=== PATIENT | female | born 1955 | race Caucasian/White ===

== ENCOUNTER → 2024-05-19 08:18 | Outpatient (REF) | payer OTHER, SELFPAY | LOC: HWWDC 08:18 | PROVIDERS: ATTENDING PHYSICIAN Student in an Organized Health Care Education/Training Program | DX: Z12.31 Encounter for screening mammogram for malignant neoplasm of breast (principal) | CPT/HCPCS: 77063; 77067 ==

== ENCOUNTER 2025-03-21 07:33 | Emergency (ER) | payer OTHER, SELFPAY ==
[2025-03-21 07:39] VITALS: BP 122/80
[2025-03-21 07:47] VITALS: BMI 23.8
--- NOTE | 2025-03-21 08:27 | ED.GENMED ---
ED Provider Triage
<Bhargav Little MD, Resident - Last Filed: 03/21/25 08:40>
-
Patient seen by provider in Triage?: Seen in Triage
History of Present Illness
<Bhargav Little MD, Resident - Last Filed: 03/21/25 08:40>
General
Chief Complaint: Skin Problem
Source: patient
Exam Limitations: none
Time Seen by Provider: 03/21/25 07:46
History of Present Illness
History of Present Illness:
69 y/o female presents with painful, swollen finger since the past 1 week. Describes the pain as moderate, throbbing in intensity, located at the base of her nail bed, and non radiating. Got antibiotics 5 days ago from PCP ( she cant remember name),
however they did not alleviate symptoms. since PCP visit, the pain got worse, and finger progressively more swollen. She states that she does bite her nails. No fever, chills. nausea, vomiting. No previous similar episodes. No medical history like
diabetes or immunosupressive conditions.
If applicable-neuro sx onset
Onset of symptoms known: No
Time pt last seen normal is known: No
Past History
<Bhargav Little MD, Resident - Last Filed: 03/21/25 08:40>
Past History
ED Past Medical History: None and Other (cervicalgia)
Social History
Tobacco: Non-smoker
Alcohol: Occasional
Drug: None
Employment: Employed
Review of Systems
<Bhargav Little MD, Resident - Last Filed: 03/21/25 08:40>
Review of Systems
Allergies reviewed?: Yes
All Other Systems: ROS reviewed and negative except as documented in HPI and ROS
Skin: Denies itching or rash
Phy Exam
<Bhargav Little MD, Resident - Last Filed: 03/21/25 08:40>
General Physical Exam
General Presentation: well appearing and no apparent distress
General Skin: warm and dry
General Mental: alert
Cardiovascular Exam
Cardiovascular Exam: regular rate/rhythm
Pulmonary Exam
Pulmonary Exam: lungs clear and no respiratory distress
Skin Exam
Skin Exam: normal color, warm/dry and other (There is tenderness, fluctuance, and edema surrounding the second digit nail bed. )
Course
<Bhargav Little MD, Resident - Last Filed: 03/21/25 08:40>
Orders/Labs/Results
Orders:
Orders
03/21/25 08:23
Clindamycin HCl [Cleocin] 300 mg PO NOW STA
Vital Signs
Initial and Last Documented VS:
Initial Vital Signs
Temp Pulse Resp BP Pulse Ox
36.7 C 63 18 122/80 98
03/21/25 07:39 03/21/25 07:39 03/21/25 07:39 03/21/25 07:39 03/21/25 07:39
Last Documented Vital Signs
Temp Pulse Resp BP Pulse Ox
36.7 C 63 18 122/80 98
03/21/25 07:39 03/21/25 07:39 03/21/25 07:39 03/21/25 07:39 03/21/25 08:30
<Sushil Prince MD - Last Filed: 03/21/25 08:55>
Orders/Labs/Results
Orders:
Orders
03/21/25 08:23
Clindamycin HCl [Cleocin] 300 mg PO NOW STA
Vital Signs
Initial and Last Documented VS:
Initial Vital Signs
Temp Pulse Resp BP Pulse Ox
36.7 C 63 18 122/80 98
03/21/25 07:39 03/21/25 07:39 03/21/25 07:39 03/21/25 07:39 03/21/25 07:39
Last Documented Vital Signs
Temp Pulse Resp BP Pulse Ox
36.7 C 63 18 122/80 98
03/21/25 07:39 03/21/25 07:39 03/21/25 07:39 03/21/25 07:39 03/21/25 08:30
<Bhargav Little MD, Resident - Last Filed: 03/21/25 08:40>
MDM/Problems Addressed
Differential Diagnosis Includes:
paronychia, cellulitis, felon, abscess
MDM/Problems Addressed:
69 y/o female with swollen, erythematous, tenderness of surrounding are of second digit on left hand. Vitals stable, afebrile.
- Since there is pus, and due to size of infection, drained pus on the second digit of the left hand near nail bed, applied topical antibiotic cream, wrapped finger
- Will discharge home with clindamycin to take as instructed, and also instructed patient to us daily warm compresses, avoid nail biting
<Bhargav Little MD, Resident - Last Filed: 03/21/25 08:40>
*Pulse Oximetry
SaO2: 98
Oxygen Mode of Delivery: Room air
Patient hypoxic: no
*Critical Care Note
Total Time (30-74mins, 75-104mins- exclusive of procedures): Not Applicable
ED Attending Note
<Bhargav Little MD, Resident - Last Filed: 03/21/25 08:40>
-
Portions of this chart may have been created with voice recognition software.� Occasional wrong word or��sound alike� substitutions may have occurred due to the inherent limitations of voice recognition software.
<Sushil Prince MD - Last Filed: 03/21/25 08:55>
ED Attending Note
Patient seen and examined by attending physician: Yes
I performed a history and physical exam of patient and discussed management with resident, I reviewed resident's note and agree with documented findings and plan of care.: Yes
ED Attending Note:
I have seen and evaluated the patient with a [id number] encounter. I have spoken to the resident and involved in the medical history, the physical exam, medical decision making.
Evaluation and management service: agree unless noted differently below.
Results interpretation: agree unless noted differently below.
Focused HPI: 69-year-old female presents to the ER for evaluation of left index finger pain and swelling. Patient says she noticed some swelling around the nailbed and redness and was initially seen by primary doctor who started her on antibiotics
(she believes it may be doxycycline) which she has been taking for 4 days. Despite this intervention she has had worsening swelling and redness on the dorsum of the index finger which prompted ER visit. No other acute complaints noted. No trauma
noted.
Physical exam: Awake and alert not in distress. Vital signs normal. Patient has a large paronychia on the left index finger with large amount of fluctuance of the nailbed. No tenderness of the pulp of the finger to suggest felon.
Medical Decision Makin-year-old female presents with large paronychia not improving after few days of antibiotics. Incision and drainage performed at bedside with large amount of purulent drainage expressed. Clean dressing applied. Will
switch to clindamycin as patient reports that she bites her nails this will cover for oral ruel. Advised patient to monitor area closely and continue doing warm soaks multiple times daily over the next few days. Spoke in detail about return
precautions. All questions answered.
Discharge Plan
Departure
Patient Disposition: Home (Routine Discharge)
Date of Disposition: 03/21/25
Time of Disposition: 08:21
Patient with high blood pressure during this ER visit?: No
Discharge Problem:
Paronychia
Instructions: Paronychia - ED (DC)
Prescriptions:
New
clindamycin HCl [Cleocin HCl] 300 mg capsule
300 mg PO Q6H 7 Days Qty: 28 0RF
Activity Restrictions/Additional Instructions:
Thank you for visiting the Emergency Department at [facility].
1. Please schedule a follow up appointment as directed. Call first thing tomorrow morning to make an appointment.
2. If indicated, please take your medications as instructed and indicated on discharge paperwork.
3. If any of your symptoms do not improve, or persist, or become more severe within 6-12 hours, please return to the emergency department for further care.
4. Please return to the emergency department if you develop a headache, neck pain/stiffness, fever greater than 100.4F, chest pain, shortness of breath, persistent nausea, vomiting, slurred speech, difficulty walking, numbness/tingling, weakness,
signs of infection or any other symptoms that are worrisome to you.
Please call [phone] if you have any questions.
Interventions
Interventions:
*Risk Screen - Suicide Last Done: 03/21/25 07:39
*General Assessment Last Done: 03/21/25 07:47
*Neglect/Abuse Screening Last Done: 03/21/25 07:39
*ED- Fall Risk Assessment Last Done: 03/21/25 07:47
*ED COVID-19 Vaccine History Last Done: 03/21/25 07:47
*Nursing Disposition Last Done: 03/21/25 08:51
ED-Skin Assessment Last Done: 03/21/25 08:51
Discharge Date and Time
Print Language: AMHARIC
[2025-03-21] MEDS: CLEOCIN 300 MG PO (08:46)
== END 2025-03-21 08:53 | disposition home or self-care (01) ==
LOC: EMR 07:33
PROVIDERS: EMERGENCY PHYSICIAN Emergency Medicine; FAMILY PHYSICIAN Student in an Organized Health Care Education/Training Program
DX: L03.012 Cellulitis of left finger (principal)
CPT/HCPCS: 99283; 10060

== ENCOUNTER 2025-03-21 20:21 | Emergency (ER) | payer OTHER, SELFPAY ==
[2025-03-21 20:23] VITALS: BP 94/67
--- NOTE | 2025-03-21 21:20 | ED.GENMED ---
History of Present Illness
General
Chief Complaint: Skin Problem
Source: patient
Time Seen by Provider: 03/21/25 21:05
History of Present Illness
History of Present Illness:
This patient is a 69-year-old female presents emergency department after be seen earlier today for paronychia of the left index finger. She soaked it once and has been compliant with the antibiotic clindamycin that was prescribed. However, she
noted reaccumulation of the swelling and purulence although less then she noted earlier today. She denies fever, chills, streaking, sweats, nausea, vomiting, chest pain, shortness of breath, numbness, or other complaints. Patient is not a diabetic.
Past History
Past History
ED Past Medical History: Other (cervicalgia)
Social History
Tobacco: Non-smoker
Alcohol: Occasional
Drug: None
Personal:
Living: with family
Employment: Employed
Phy Exam
Physical Exam
Physical Exam:
GENERAL: Alert , in no apparent distress
EYE: pupils equal and reactive
NECK: Supple, no significant adenopathy.
ENT: o/p clr, mmm.
CARDIAC: Regular rate and rhythm .
LUNGS: Clear breath sounds bilaterally, no acute respiratory distress, no wheezes/rales/rhonchi
ABDOMEN: Soft, without focal tenderness, no r/g, no cvat
NEUROLOGICAL: Alert and oriented, no focal neuro deficits
SKIN: Warm and dry, skin intact. Left index finger with mod sized paronychia and assoc erythema, no streaking ,no flexor tendon ttp/sausage digit/limitation of rom, or other s/o tenosynovitis. No nail abnl.
MUSCULOSKELETAL: mild edema of L distal index finger, well perfused.
PSYCH: Normal and appropriate interaction.
Course
Vital Signs
Initial and Last Documented VS:
Initial Vital Signs
Temp Pulse Resp BP Pulse Ox
97.9 F 68 20 94/67 98
03/21/25 20:23 03/21/25 20:23 03/21/25 20:23 03/21/25 20:23 03/21/25 20:23
Last Documented Vital Signs
Temp Pulse Resp BP Pulse Ox
97.9 F 68 20 94/67 98
03/21/25 20:23 03/21/25 20:23 03/21/25 20:23 03/21/25 20:23 03/21/25 21:26
Procedures
Digital Block
Location of injection for digital block: base of digit
Indiction for Digital Block: other
Type of anesthesia: 1% Lidocaine w/o EPI
Complications: none- good anesthesia
*Pulse Oximetry
SaO2: 98
Oxygen Mode of Delivery: Room air
Patient hypoxic: no
*Critical Care Note
Total Time (30-74mins, 75-104mins- exclusive of procedures): Not Applicable
Update Note
Update Note:
Patient presents to the Emergency Department with ___recurrent swelling and pain of left index finger
Number and Complexity of Problems Addressed at the Encounter
� Chronic conditions affecting care:
� Acute Exacerbation and/or Progression of Chronic Illness:
� Differential Diagnosis includes: But not limited to persistent paronychia, herpetic dwayne, flexor tenosynovitis, cellulitis, etc. etc.
Amount and/or Complexity of Data to be Reviewed and Analyzed
� I performed an independent evaluation of and my interpretation is:
EKG:
CT:
Xrays:
Laboratory Studies:
Other:
� Review of other/old records reveals:
� Clinical information was obtained by an independent historian:
� Prescriptions/Medications Considered but not given:
� Further testing considered but not performed:
Risk of Complications and/or Morbidity or Mortality of Patient Management
� Social determinants of health affecting care:
� Discussion with other providers (PCP, Hospitalists, Consultants, etc):
� Escalation of care including admission/observation vs risk of discharge considered: Exam does not show signs to suggest lymphangitis, flexor tenosynovitis, and does not look characteristic for herpetic dwayne. Suspect
reaccumulation of pus with paronychia. Encouraged patient to be very consistent with warm soaks and antibiotics, recommend soaks at least 4 times a day, close inspection of area, aware of importance of follow-up and again reasons to return the
emergency department.
Digital block performed, betadine applied to area, incision made, area irrigated, pus expressed, RN to dress. Pt encouraged to take photo of finger at least once a dya for f/u.
ED Attending Note
-
Portions of this chart may have been created with voice recognition software.� Occasional wrong word or��sound alike� substitutions may have occurred due to the inherent limitations of voice recognition software.
Discharge Plan
Departure
Patient Disposition: Home (Routine Discharge)
Date of Disposition: 03/21/25
Time of Disposition: 21:31
Patient with high blood pressure during this ER visit?: No
Condition: Good
Discharge Problem:
Paronychia
Instructions: Paronychia - ED (DC)
Prescriptions:
No Action
clindamycin HCl [Cleocin HCl] 300 mg capsule
300 mg PO Q6H 7 Days Qty: 28 0RF
Referrals:
Natalie Astorga MD, Resident [Family Provider, General] - Follow up in 2-3 days
Activity Restrictions/Additional Instructions:
PLEASE SEE YOUR DOCTOR WITHIN 2 DAYS FOR CLOSE FOLLOW-UP. IF YOU DEVELOP FEVER, INCREASING OR PERSISTENT OR NEW PAIN, INCREASING OR NEW SWELLING, OR OTHER WORRISOME SIGNS, PLEASE RETURN TO THE ER IMMEDIATELY. YOU SHOULD PLEASE PERFORM WARM SOAKS,
20 MINUTES AT A TIME, AT LEAST 4 TIMES A DAY. EXAMINE THE AREA REGULARLY TO MONITOR FOR CHANGES.
Interventions
Interventions:
*Risk Screen - Suicide Last Done: 03/21/25 21:34
*General Assessment Last Done: 03/21/25 20:23
*Neglect/Abuse Screening Last Done: 03/21/25 21:34
*Nursing Disposition Last Done: 03/21/25 21:39
ED-Skin Assessment Last Done: 03/21/25 20:50
Discharge Date and Time
Discharge Date/Time: 03/21/25 21:39
Print Language: AUSTRIAN
== END 2025-03-21 21:39 | disposition home or self-care (01) ==
LOC: EMR 20:21
PROVIDERS: EMERGENCY PHYSICIAN Emergency Medicine; FAMILY PHYSICIAN Student in an Organized Health Care Education/Training Program
DX: L03.012 Cellulitis of left finger (principal)
CPT/HCPCS: 10060; 99282

== ENCOUNTER 2025-04-03 08:25 | Emergency (ER) | payer OTHER, SELFPAY ==
[2025-04-03 08:26] VITALS: BP 124/61
--- NOTE | 2025-04-03 09:35 | ED.GENMED ---
History of Present Illness
General
Chief Complaint: Insect Sting
Source: patient
Exam Limitations: none
Time Seen by Provider: 04/03/25 09:24
History of Present Illness
History of Present Illness:
69-year-old female presents with swelling and itchiness and discomfort around the left eye. She was stung by bee in the corner of her left eye yesterday and woke up this morning with significant swelling. She tried to take a steroid dose
yesterday. She has not had any antihistamines. She denies any fevers. No other complaints at this time
Past History
Past History
ED Past Medical History: Other (cervicalgia)
Social History
Tobacco: Non-smoker
Alcohol: Occasional
Drug: None
Personal:
Living: with family
Employment: Employed
Phy Exam
Physical Exam
Physical Exam:
General: Well-appearing female no acute respiratory distress HEENT normal cephalic atraumatic
There is periorbital swelling of the left eye. No chemosis noted. There is no fluctuance or induration. Extract motions are intact no proptosis
Course
Orders/Labs/Results
Orders:
Orders
04/03/25 09:35
Diphenhydramine [Benadryl] 25 mg PO NOW STA
Prednisone [Deltasone] 50 mg PO NOW STA
Vital Signs
Initial and Last Documented VS:
Initial Vital Signs
Temp Pulse Resp BP Pulse Ox
98.9 F 64 16 124/61 98
04/03/25 08:26 04/03/25 08:26 04/03/25 08:26 04/03/25 08:26 04/03/25 08:26
Last Documented Vital Signs
Temp Pulse Resp BP Pulse Ox
98.9 F 64 16 124/61 98
04/03/25 08:26 04/03/25 08:26 04/03/25 08:26 04/03/25 08:26 04/03/25 08:26
MDM/Problems Addressed
Differential Diagnosis Includes:
Bee sting corner of left eye with localized swelling and reaction. Posterior pharynx is without swelling there is no respiratory distress. I suspect patient is experiencing localized reaction to bee sting. Other items in differential could be
underlying cellulitis however unlikely given the time of which this started.
Will start Benadryl and prednisone. Doxycycline will be prescribed.
*Pulse Oximetry
SaO2: 98
Oxygen Mode of Delivery: Room air
Patient hypoxic: no
*Critical Care Note
Total Time (30-74mins, 75-104mins- exclusive of procedures): Not Applicable
ED Attending Note
-
Portions of this chart may have been created with voice recognition software.� Occasional wrong word or��sound alike� substitutions may have occurred due to the inherent limitations of voice recognition software.
Discharge Plan
Departure
Patient Disposition: Home (Routine Discharge)
Date of Disposition: 04/03/25
Time of Disposition: 09:41
Patient with high blood pressure during this ER visit?: No
Discharge Problem:
Bee sting
Instructions: Insect Bites and Stings (DC)
Prescriptions:
New
prednisone 20 mg tablet
40 mg PO DAILY 5 Days Qty: 10 0RF
doxycycline hyclate 100 mg capsule
100 mg PO BID Qty: 14 0RF
No Action
clindamycin HCl [Cleocin HCl] 300 mg capsule
300 mg PO Q6H 7 Days Qty: 28 0RF
Referrals:
Natalie Astorga MD, Resident [Family Provider, General]
Activity Restrictions/Additional Instructions:
Continue with cool compresses and Benadryl every 4 hours. Take prednisone as directed starting tomorrow. Antibiotics have been prescribed, take them if worsening. Return if worse otherwise follow-up with your doctor
Interventions
Interventions:
*Risk Screen - Suicide Last Done: 04/03/25 08:26
*General Assessment Last Done: 04/03/25 08:26
Discharge Date and Time
Print Language: COMORAN
[2025-04-03] MEDS: DELTASONE 50 MG PO (09:50)
[2025-04-03] MEDS: BENADRYL 25 MG PO (09:50)
[2025-04-03 10:21] VITALS: BP 121/70
== END 2025-04-03 10:21 | disposition home or self-care (01) ==
LOC: EMR 08:25
PROVIDERS: EMERGENCY PHYSICIAN Emergency Medicine; FAMILY PHYSICIAN Student in an Organized Health Care Education/Training Program
DX: T63.441A Toxic effect of venom of bees, accidental (unintentional), initial encounter (principal); R22.0 Localized swelling, mass and lump, head; X58.XXXA Exposure to other specified factors, initial encounter
CPT/HCPCS: 99283